=== PATIENT | female | born 1990 | race Caucasian/White ===

== ENCOUNTER 2016-11-27 15:41 | Emergency (ER) | payer OTHER ==
[2016-11-27 15:56] VITALS: O2SAT 97
[2016-11-27] MEDS ORDERED: Tylenol #3 Tablet PO ONE (16:01)
[2016-11-27] MEDS ORDERED: Tylenol #3 Tablet ONE (16:03)
--- NOTE | 2016-11-27 16:03 | ERPHSYRPT ---
- History of Present Illness Time Seen by Provider: 11/27/16 15:55 Source: patient Exam Limitations: clinical condition Patient Subjective Stated Complaint: fell at [facility] today while giving pt a shower. states she caught foot on shower mat. struck left knee on concrete Triage Nursing Assessment: to room per w/c. had ice packs on left knee per de staff. left knee slightly swollen and red from ice. left lower leg and foot warm to touch and good pedal pulse. good cap refill. Physician History: PATIENT STATES WHILE ASSIST LIFTING A RESIDENT IN ALF TRIPPED OVER A RUG IN BATHROOM AND FELL TO FLOOR STRIKING HER LEFT KNEE. PATIENT COMPLAINS OF PAIN WITH SWELLING UNABLE TO BEAR WEIGHT ONTO LEFT LEG. DENIES ASSOCIATED HEAD, NECK AND BACK PAIN. Method of Injury: direct blow, fell Occurred: just prior to arrival Quality: constant Severity of Pain-Max: moderate Severity of Pain-Current: moderate Lower Extremities Pain: knee: left Modifying Factors: Improves With: movement Associated Symptoms: unable to bear weight Allergies/Adverse Reactions: acetaminophen [From Vicodin] Adverse Reaction (Verified 11/27/16 15:49) hydrocodone bitartrate [From Vicodin] Adverse Reaction (Verified 11/27/16 15:49) Home Medications: Metoprolol Succinate 50 mg [Toprol Xl 50 MG] 50 mg PO DAILY 08/08/14 [ History] Omeprazole [Prilosec] 40 mg PO DAILY 08/08/14 [History] Tramadol HCl 50 mg [Ultram 50 mg] 50 mg PO Q6HPRN 08/08/14 [History] Ibuprofen 600 mg PO TIDPRN 11/27/16 [History] Hx Tetanus, Diphtheria Vaccination/Date Given: Yes Hx Influenza Vaccination/Date Given: Yes Hx Pneumococcal Vaccination/Date Given: No - Review of Systems Constitutional: No Symptoms Respiratory: No Symptoms Cardiac: No Symptoms Musculoskeletal: Injury, Joint Pain, Joint Swelling Skin: No Symptoms - Past Medical History Pertinent Past Medical History: Yes Neurological History: Migraines Cardiac History: Hypertension Musculoskeletal History: Other GI Medical History: GERD History: Other Other Medical History: CARPAL TUNNEL RT - Past Surgical History Past Surgical History: Yes Gastrointestinal: Cholecystectomy Musculoskeletal: Orthopedic Surgery Other Surgical History: nose, FEET BILAT - Social History Smoking Status: Former smoker How long have you smoked: 10 Exposure to second hand smoke: No Drug Use: none Patient Lives Alone: No - Female History Hx Last Menstrual Period: three weeks ago - Nursing Vital Signs Nursing Vital Signs: Initial Vital Signs Temperature 97.9 F Temperature Source Oral Pulse Rate 86 Respiratory Rate 16 Blood Pressure [] 130/53 Pain Intensity 4 - Physical Exam General Appearance: alert Eyes, Ears, Nose, Throat Exam: moist mucous membranes Neck Exam: non-tender, supple Cardiovascular/Respiratory Exam: chest non-tender, normal breath sounds, regular rate/rhythm, no respiratory distress Back Exam: normal inspection, No vertebral tenderness Knees Exam: left knee: pain, soft tissue tenderness, swelling (PATELLA MIDLINE, MOBILE, WITH TENDERNESS, FROM WITH PAIN, MINIMAL JOINT LAXITY UPON VARUS/VALGUS STRESS, PEDIS PULSEDS 2+) Neuro/Tendon Exam: normal sensation, normal motor functions Mental Status Exam: alert, oriented x 3, cooperative Skin Exam: normal color, warm, dry SpO2: 97 Oxygen Delivery: Room Air - Radiology Exams Right Knee X-ray Interpretation: Interpreted by me, No Fracture (NO DISLOCATION), No Pneumothorax Ordered Tests: Active Orders 24 hr Category Date Time Status Crutches STAT Care 11/27/16 16:08 Active KNEE (3 VIEWS) Stat Exams 11/27/16 16:01 Completed Medication Summary Discontinued Medications Generic Name Dose Route Start Last Admin Trade Name Que PRN Reason Stop Dose Admin Acetaminophen/Codeine Phosphate 2 tab 11/27/16 16:01 11/27/16 16:04 Tylenol #3 Tablet PO 11/27/16 16:02 2 tab STAT ONE Administration Acetaminophen/Codeine Phosphate Confirm 11/27/16 16:03 Tylenol #3 Tablet Administered 11/27/16 16:04 Dose 2 tab .ROUTE .STK-MED ONE - Progress Progress Note: 11/27/16 16:13 PATIENT GIVEN TYLENOL #3, 2 TABLETS, AND FITTED FOR CRUTCHES Counseled pt/family regarding: diagnosis, need for follow-up, rad results - Departure Time of Disposition: 16:30 Departure Disposition: Home Clinical Impression: CONTUSION/STRAIN LEFT KNEE Condition: Stable Critical Care Time: No Referrals: MARVIN ONEILL, [employer] UP OPERATOR [employer]NAL [Primary Care Provider] - Instructions: Knee Pain Additional Instructions: AMBULATE USING CRUTCHES NONWEIGHT BEARING LEFT LEG FOR 5 DAYS. ELEVATE KNEE AND APPLY ICE OVER KNEE SWELLING EVERY 4 HOURS, 30 MINUTES FOR 48 HOURS. TYLENOL #3 EVERY 4 HOURS FOR PAIN NEEDED. CALL YOUR FAMILY PHYSICIAN TOMORROW FOR APPOINTMENT. Prescriptions: Codeine Phosphate/APAP #3 [Tylenol #3 Tablet] 1 tab PO Q4HPRN PRN #20 tablet PRN Reason: Pain
--- NOTE | 2016-11-27 16:33 | XRAY ---
Indication: Pain following fall. Comparison: None 3 views of the left knee demonstrates posterior fabella. No other bony, articular, or soft tissue abnormalities.
[2016-11-27 16:45] VITALS: BP 130/53; PULSE 86
== END 2016-11-27 16:42 | disposition home or self-care (01) ==
LOC: ED 15:41
DX: S80.02XA Contusion of left knee, initial encounter (principal); S83.92XA Sprain of unspecified site of left knee, initial encounter; W01.0XXA Fall on same level from slipping, tripping and stumbling without subsequent striking against object, initial encounter; Y93.F1 Activity, caregiving, bathing; Y92.121 Bathroom in nursing home as the place of occurrence of the external cause
CPT/HCPCS: 73562; 99283; A9270-GY

== ENCOUNTER 2016-11-27 17:20 | Emergency (ER) | payer OTHER ==
[2016-11-27] MEDS ORDERED: Zofran 4 MG/2 ML VIAL IV ONE (17:53)
[2016-11-27] MEDS ORDERED: GI COCKTAIL 60ML (Belladonn/Phenobarb/Lidoc PO ONE (17:53)
[2016-11-27] MEDS ORDERED: PROTONIX 40 MG IV IV ONE ×2 (17:53→17:59)
[2016-11-27] MEDS ORDERED: Hydromorphone 1 mg/ml Ampule IV ONE (17:53)
[2016-11-27] MEDS ORDERED: Sodium Chloride 0.9% 1000 ML 1,000 ML IV STA (17:53)
[2016-11-27 17:58] LABS: BASOPHIL % 0.2 % (0.0-0.4); Eosinophil % 0.6 % (0.00-5.0); Granulocytes % 58.5 % (36.0-66.0); Mean Cell Volume 87.6 fl (78-100); Mean Corpuscular Hemoglobin 28.2 pg (26-32); Mean Platelet Volume 9.4 fl (6-9.5); Monocytes % 5.7 % (0.0-12.0); Platelet Count 390 K/mm3 (150-450); Red Blood Count 4.68 M/mm3 (4.1-5.4); Red Cell Distribution Width 14.1 % (11.5-14.0); White Blood Count 12.1 K/mm3 (4.0-10.5)
[2016-11-27] MEDS ORDERED: Zofran 4 MG/2 ML VIAL ONE (17:58)
[2016-11-27] MEDS ORDERED: Hydromorphone 1 mg/ml Ampule ONE (17:59)
[2016-11-27] MEDS ORDERED: XYLOCAINE HCl Viscous ONE (17:59)
[2016-11-27] MEDS ORDERED: MAALOX ES 30 ML UNIT DOSE ONE (18:00)
[2016-11-27] MEDS ORDERED: Sodium Chloride 0.9% 1000 ML 1,000 ML ONE (18:00)
[2016-11-27] MEDS ORDERED: Donnatol Liquid ONE (18:00)
--- NOTE | 2016-11-27 18:00 | ERPHSYRPT ---
- History of Present Illness Time Seen by Provider: 11/27/16 17:50 Historian: patient Exam Limitations: clinical condition Patient Subjective Stated Complaint: sudden onset abd pain after leaving er this afternoon. states she tried to eat something and pain got worse. Triage Nursing Assessment: patient crying, moaning, holding abd. states pain started she left er earlier today. abd soft, tender mid abd. states radiates through to her back. Physician History: PATIENT WITH HISTORY OF HYPERTENSION, EVALUATED EARLIER IN EMERGENCY ROOM FOR LEFT KNEE CONTUSION, STRAIN , ADMINISTERED TYLENOL #3- TWO TABLETS WITHOUT EATING TODAY. AFTER DISCHARGE PATIENT DEVELOPED PROGRESSIVE EPIGASTRIC AND PERIUMBILICAL PAIN. DENIES NAUSEA OR EMESIS. Timing/Duration: hour(s) Activities at Onset: none Quality: cramping Abdominal Pain Onset Location: epigastric, periumbilical Pain Radiation: no radiation Severity of Pain-Max: severe Severity of Pain-Current: severe Modifying Factors: Improves With: nothing Associated Symptoms: nausea Previous symptoms: other (GASTROESOPHAGEAL REFLUX) Allergies/Adverse Reactions: acetaminophen [From Vicodin] Adverse Reaction (Verified 11/27/16 17:37) hydrocodone bitartrate [From Vicodin] Adverse Reaction (Verified 11/27/16 17:37) Home Medications: Metoprolol Succinate 50 mg [Toprol Xl 50 MG] 50 mg PO DAILY 08/08/14 [ History] Omeprazole [Prilosec] 40 mg PO DAILY 08/08/14 [History] Tramadol HCl 50 mg [Ultram 50 mg] 50 mg PO Q6HPRN 08/08/14 [History] Ibuprofen 600 mg PO TIDPRN 11/27/16 [History] Hx Tetanus, Diphtheria Vaccination/Date Given: Yes Hx Influenza Vaccination/Date Given: Yes Hx Pneumococcal Vaccination/Date Given: No - Review of Systems Constitutional: No Fever, No Chills Eyes: No Symptoms Ears, Nose, & Throat: No Symptoms Respiratory: No Symptoms, No Cough, No Dyspnea Cardiac: No Chest Pain, No Edema, No Syncope Abdominal/Gastrointestinal: Abdominal Pain, Nausea, No Vomiting, No Diarrhea Genitourinary Symptoms: No Symptoms, No Dysuria Musculoskeletal: No Symptoms, No Back Pain, No Neck Pain Skin: No Symptoms, No Rash Neurological: No Dizziness, No Focal Weakness, No Sensory Changes Psychological: No Symptoms Endocrine: No Symptoms All Other Systems: Reviewed and Negative - Past Medical History Pertinent Past Medical History: Yes Neurological History: Migraines Cardiac History: Hypertension Musculoskeletal History: Other GI Medical History: GERD History: Other Other Medical History: CARPAL TUNNEL RT - Past Surgical History Past Surgical History: Yes Gastrointestinal: Cholecystectomy Musculoskeletal: Orthopedic Surgery Other Surgical History: nose, FEET BILAT - Social History Smoking Status: Former smoker How long have you smoked: 10 Exposure to second hand smoke: No Drug Use: none Patient Lives Alone: No - Female History Hx Last Menstrual Period: three weeks ago - Nursing Vital Signs Nursing Vital Signs: Initial Vital Signs Temperature 97.5 F Temperature Source Oral Pulse Rate 82 Respiratory Rate 16 Blood Pressure [Left Arm] 127/74 Pain Intensity 10 - Physical Exam General Appearance: mild distress, alert Eye Exam: PERRL/EOMI, eyes nml inspection Ears, Nose, Throat Exam: normal ENT inspection, pharynx normal, moist mucous membranes Neck Exam: normal inspection, non-tender, supple, full range of motion Respiratory Exam: normal breath sounds, lungs clear, No respiratory distress Cardiovascular Exam: regular rate/rhythm, normal heart sounds Gastrointestinal/Abdomen Exam: soft, normal bowel sounds, tenderness (THERE IS MODERATE EPIGASTRIC AND PERIUMBILICAL TENDERNESS), No mass Back Exam: normal inspection, normal range of motion, No CVA tenderness, No vertebral tenderness Extremity Exam: normal inspection, normal range of motion, pelvis stable Neurologic Exam: alert, oriented x 3, cooperative, normal mood/affect, nml cerebellar function, sensation nml, No motor deficits Skin Exam: normal color, warm, dry SpO2: 97 Oxygen Delivery: Room Air - CT Exams Abdomen/Pelvis CT Interpretation: Discussed w/radiologist (SPLENOMEGALY, NORMAL APPENDIX, NO FREE AIR OR BOWEL OBSTRUCTION), DJD Ordered Tests: Active Orders 24 hr Category Date Time Status Clean Catch Urine Specimen STAT Care 11/27/16 17:54 Active IV Insertion STAT Care 11/27/16 17:53 Active ABDOMEN AND PELVIS W CONTRAST [CT] Stat Exams 11/27/16 17:53 Taken AMYLASE Stat Lab 11/27/16 17:40 Completed CBC W DIFF Stat Lab 11/27/16 17:40 Completed CMP Stat Lab 11/27/16 17:40 Completed HCG,QUALITATIVE URINE Stat Lab 11/27/16 17:45 Completed LIPASE Stat Lab 11/27/16 17:40 Completed UA W/ MICROSCOPIC Stat Lab 11/27/16 17:45 Completed Medication Summary Generic Name Dose Route Start Last Admin Trade Name Fremarkell PRN Reason Stop Dose Admin Sodium Chloride 1,000 mls @ 500 mls/hr 11/27/16 17:53 11/27/16 18:15 Sodium Chloride 0.9% 1000 Ml IV 11/27/16 19:52 500 mls/hr .Q2H STA Administration Discontinued Medications Generic Name Dose Route Start Last Admin Trade Name Freq PRN Reason Stop Dose Admin Al Hydrox/Mg Hydrox/Simethicone Confirm 11/27/16 18:00 Maalox Es 30 Ml Unit Dose Administered 11/27/16 18:01 Dose 30 ml .ROUTE .STK-MED ONE Belladonna Alkaloids/Phenobarbital 60 ml 11/27/16 17:53 11/27/16 18:35 Gi Cocktail 60ml (Belladonn/Phenobarb/Lidoc* PO 11/27/16 17:54 Not Given STAT ONE Belladonna Alkaloids/Phenobarbital Confirm 11/27/16 18:00 Donnatol Liquid Administered 11/27/16 18:01 Dose 64.8 mg .ROUTE .STK-MED ONE Hydromorphone HCl 1 mg 11/27/16 17:53 11/27/16 18:35 Hydromorphone 1 Mg/Ml Ampule IV 11/27/16 17:54 Not Given STAT ONE Hydromorphone HCl Confirm 11/27/16 17:59 Hydromorphone 1 Mg/Ml Ampule Administered 11/27/16 18:00 Dose 1 mg .ROUTE .STK-MED ONE Sodium Chloride Confirm 11/27/16 18:00 Sodium Chloride 0.9% 1000 Ml Administered 11/27/16 18:01 Dose 1,000 mls @ ud .ROUTE .STK-MED ONE Lidocaine HCl Confirm 11/27/16 17:59 Xylocaine Hcl Viscous * Administered 11/27/16 18:00 Dose 20 ml .ROUTE .STK-MED ONE Ondansetron HCl 4 mg 11/27/16 17:53 11/27/16 18:36 Zofran 4 Mg/2 Ml Vial IV 11/27/16 17:54 Not Given STAT ONE Ondansetron HCl Confirm 11/27/16 17:58 Zofran 4 Mg/2 Ml Vial Administered 11/27/16 17:59 Dose 4 mg .ROUTE .STK-MED ONE Pantoprazole Sodium 40 mg 11/27/16 17:53 11/27/16 18:36 Protonix 40 Mg Iv IV 11/27/16 17:54 Not Given STAT ONE Pantoprazole Sodium Confirm 11/27/16 17:59 Protonix 40 Mg Iv Administered 11/27/16 18:00 Dose 40 mg IV .STK-MED ONE Lab/Rad Data: Laboratory Result Diagrams 11/27/16 17:40 11/27/16 17:40 Laboratory Results 11/27/16 11/27/16 11/27/16 Range/Units 17:45 17:45 17:40 WBC (4.0-10.5) K/mm3 RBC (4.1-5.4) M/mm3 Hgb (12.0-16.0) gm/dl Hct (35-47) % MCV (78-100) fl MCH (26-32) pg MCHC (32-36) g/dl RDW (11.5-14.0) % Plt Count (150-450) K/mm3 MPV (6-9.5) fl Gran % (36.0-66.0) % Lymphocytes % (24.0-44.0) % Monocytes % (0.0-12.0) % Eosinophils % (0.00-5.0) % Basophils % (0.0-0.4) % Basophils # (0-0.4) Sodium 140 (136-145) mEq/L Potassium 3.4 L (3.5-5.1) mEq/L Chloride 105 (98-107) mEq/L Carbon Dioxide 22.2 (21-32) mEq/L Anion Gap 16.0 H (5-15) MEQ/L BUN 12 (9-20) mg/dL Creatinine 1.02 (0.55-1.30) mg/dl Estimated GFR > 60 ML/MIN Glucose 154 H (70-110) MG/DL Calcium 9.2 (8.5-10.1) mg/dL Total Bilirubin 0.40 (0.2-1.0) mg/dL AST 22 (15-37) U/L ALT 25 (12-78) U/L Alkaline Phosphatase 71 (46-116) U/L Serum Total Protein 7.9 (6.4-8.2) gm/dL Albumin 3.4 (3.4-5.0) g/dL Amylase 36 (25-115) U/L Lipase 124 (73-393) U/L Ur Collection Type CCMS Urine Color YELLOW (YELLOW) Urine Appearance CLEAR (CLEAR) Urine pH 5.0 (5-6) Ur Specific [place] 1.020 (1.005-1.025) Urine Protein NEGATIVE (Negative) Urine Ketones NEGATIVE (NEGATIVE) Urine Blood 250 (0-5) Lev/ul Urine Nitrite NEGATIVE (NEGATIVE) Urine Bilirubin NEGATIVE (NEGATIVE) Urine Urobilinogen NORMAL (0-1) mg/dL Ur Leukocyte Esterase NEGATIVE (NEGATIVE) Urine Microscopic RBC 2-5 (0-2) /HPF Urine Microscopic WBC 2-5 (0-5) /HPF Ur Epithelial Cells FEW (FEW) /HPF Urine Bacteria MODERATE (NEGATIVE) /HPF Urine Glucose NEGATIVE (NEGATIVE) mg/dL Urine HCG, Qual NEGATIVE (Negative) Specimen Received 11-27-16 1820 11/27/16 Range/Units 17:40 WBC 12.1 H (4.0-10.5) K/mm3 RBC 4.68 (4.1-5.4) M/mm3 Hgb 13.2 (12.0-16.0) gm/dl Hct 41.0 (35-47) % MCV 87.6 (78-100) fl MCH 28.2 (26-32) pg MCHC 32.2 (32-36) g/dl RDW 14.1 H (11.5-14.0) % Plt Count 390 (150-450) K/mm3 MPV 9.4 (6-9.5) fl Gran % 58.5 (36.0-66.0) % Lymphocytes % 35.0 (24.0-44.0) % Monocytes % 5.7 (0.0-12.0) % Eosinophils % 0.6 (0.00-5.0) % Basophils % 0.2 (0.0-0.4) % Basophils # 0.03 (0-0.4) Sodium (136-145) mEq/L Potassium (3.5-5.1) mEq/L Chloride (98-107) mEq/L Carbon Dioxide (21-32) mEq/L Anion Gap (5-15) MEQ/L BUN (9-20) mg/dL Creatinine (0.55-1.30) mg/dl Estimated GFR ML/MIN Glucose (70-110) MG/DL Calcium (8.5-10.1) mg/dL Total Bilirubin (0.2-1.0) mg/dL AST (15-37) U/L ALT (12-78) U/L Alkaline Phosphatase (46-116) U/L Serum Total Protein (6.4-8.2) gm/dL Albumin (3.4-5.0) g/dL Amylase (25-115) U/L Lipase (73-393) U/L Ur Collection Type Urine Color (YELLOW) Urine Appearance (CLEAR) Urine pH (5-6) Ur Specific [place] (1.005-1.025) Urine Protein (Negative) Urine Ketones (NEGATIVE) Urine Blood (0-5) Lev/ul Urine Nitrite (NEGATIVE) Urine Bilirubin (NEGATIVE) Urine Urobilinogen (0-1) mg/dL Ur Leukocyte Esterase (NEGATIVE) Urine Microscopic RBC (0-2) /HPF Urine Microscopic WBC (0-5) /HPF Ur Epithelial Cells (FEW) /HPF Urine Bacteria (NEGATIVE) /HPF Urine Glucose (NEGATIVE) mg/dL Urine HCG, Qual (Negative) Specimen Received - Progress Progress: improved Progress Note: 11/27/16 19:17 PATIENT REFUSED IV FLUIDS INITALLY, ZOFRAN 4MG, PROTONIX 40 IV Counseled pt/family regarding: lab results, diagnosis, need for follow-up - Departure Time of Disposition: 19:24 Departure Disposition: Home Clinical Impression: ACUTE ABDOMINAL PAIN Condition: Stable Critical Care Time: No Referrals: MARVIN ONEILL DIRECTOR A[employer]IENCE MARKETING [Primary Care Provider] - Instructions: Abdominal Pain-Adult Additional Instructions: CONTINUE ALL CURRENT MEDICATIONS. CONSULT YOUR FAMILY PHYSICIAN IN 1 WEEK FOR FOLLOWUP.
[2016-11-27 18:09] LABS: ALBUMIN 3.4 g/dL (3.4-5.0); ALKALINE PHOSPHATASE 71 U/L (46-116); BLOOD UREA NITROGEN 12 mg/dL (9-20); CHLORIDE 105 mEq/L (98-107); Carbon Dioxide 22.2 mEq/L (21-32); Glucose 154 MG/DL (70-110); LIPASE 124 U/L (73-393); Potassium 3.4 mEq/L (3.5-5.1); SGOT/AST 22 U/L (15-37); SGPT/ALT 25 U/L (12-78); SODIUM 140 mEq/L (136-145); Total Protein 7.9 gm/dL (6.4-8.2)
[2016-11-27 18:27] LABS: Collection Type CCMS; Glucose NEGATIVE (NEGATIVE); Leukocyte Esterase NEGATIVE (NEGATIVE)
[2016-11-27 18:28] LABS: Bacteria MODERATE /HPF (NEGATIVE); Bilirubin NEGATIVE (NEGATIVE); Blood 250 Ery/ul (0-5); COMPLETE URINE MICROSCOPIC? YES; Epithelial Cells FEW /HPF (FEW)
[2016-11-27 19:31] VITALS: BP 130/68; PULSE 80; O2SAT 96
--- NOTE | 2016-11-28 08:30 | XRAY ---
Indication: Mid abdominal and flank pain. Multiple contiguous axial images obtained through the abdomen and pelvis using 80 cc Isovue 370 contrast only. Comparison: None Lung bases are clear with left infrahilar calcified node. Heart is not enlarged. Noncontrasted stomach and bowel loops appear nonobstructed. Normal appendix. Previous cholecystectomy. No free fluid/air. Mild fatty liver. Spleen is enlarged measuring 13.2 cm in greatest axial dimension. Remaining liver, pancreas, spleen, adrenal glands, kidneys, ureters, bladder, uterus, and aorta appear unremarkable. No pathologic retroperitoneal lymphadenopathy. Osseous structures intact. Impression: 1. No acute intra-abdominal/pelvic abnormalities. 2. Incidental mild fatty liver and splenomegaly. CT DI 35.17
== END 2016-11-27 19:50 | disposition home or self-care (01) ==
LOC: ED 17:20
DX: R10.13 Epigastric pain (principal); R10.9 Unspecified abdominal pain; I10 Essential (primary) hypertension; Z79.899 Other long term (current) drug therapy
CPT/HCPCS: 36000; 36415; 74177; 80053; 81000; 82150; 83690; 84703; 85025; 96360; 99284; J1170; J2405; A9270-GY

== ENCOUNTER 2024-05-17 13:03 | Emergency (ER) | payer OTHER ==
[2024-05-17 13:16] VITALS: PULSE 88; TEMP 97.5; O2SAT 98
[2024-05-17] MEDS ORDERED: BENADRYL 50 MG/ML ONE (13:21)
[2024-05-17] MEDS ORDERED: Pepcid 20 MG VIAL IV ONE (13:21)
[2024-05-17] MEDS ORDERED: DECADRON 10MG INJ. ONE (13:21)
[2024-05-17] MEDS: BENADRYL 50 MG/ML IV ONE (13:28)
[2024-05-17] MEDS: DECADRON 10MG INJ. IV ONE (13:28)
[2024-05-17] MEDS: Pepcid 20 MG VIAL IV ONE (13:28)
--- NOTE | 2024-05-17 13:30 | ERPHSYRPT ---
- History of Present Illness Time Seen by Provider: 05/17/24 13:16 Source: patient Exam Limitations: no limitations Patient Subjective Stated Complaint: Rash Triage Nursing Assessment: Patient ambulated back to ED and transferred self to bed. Patient A+O X 3. Patient's skin flushed, warm and dry. Patient complains of rash. Patient states around 10 am she started itching to her henrietta arms. Patient states around noon she noticed a faint red rash to henrietta arms and hands. Patient states 30 min later she had a rash to neck, back, henrietta arms, trunk, chest and henrietta thighs. Timing/Duration: today Severity: mild Associated Symptoms: denies symptoms Allergies/Adverse Reactions: sumatriptan [From Imitrex] Allergy (Verified 05/17/24 13:08) acetaminophen [From Vicodin] Adverse Reaction (Verified 05/17/24 13:08) hydrocodone bitartrate [From Vicodin] Adverse Reaction (Verified 05/17/24 13:08) Home Medications: Metoprolol Succinate 50 mg [Toprol Xl 50 MG] 50 mg PO DAILY 08/08/14 [History] Omeprazole [Prilosec] 40 mg PO DAILY 08/08/14 [History] Tramadol HCl 50 mg [Ultram 50 mg] 50 mg PO Q6HPRN 08/08/14 [History] Ibuprofen 600 mg PO TIDPRN 11/27/16 [History] Hx Tetanus, Diphtheria Vaccination/Date Given: Yes Hx Influenza Vaccination/Date Given: Yes Hx Pneumococcal Vaccination/Date Given: No Immunizations Up to Date: Yes Travel Risk - International Travel Have you traveled outside of the country in past 3 weeks: No - Emerging Infectious Disease Are you exhibiting symptoms associated with any current EIDs: No - Review of Systems Eyes: No Symptoms Ears, Nose, & Throat: No Symptoms Respiratory: No Symptoms Cardiac: No Symptoms Abdominal/Gastrointestinal: No Symptoms Genitourinary Symptoms: No Symptoms Musculoskeletal: No Symptoms Skin: Rash Neurological: No Symptoms - Past Medical History Pertinent Past Medical History: Yes Neurological History: Migraines Cardiac History: Hypertension Musculoskeletal History: Other GI Medical History: GERD History: Other Other Medical History: CARPAL TUNNEL RT - Past Surgical History Past Surgical History: Yes Gastrointestinal: Cholecystectomy Musculoskeletal: Orthopedic Surgery Other Surgical History: nose, FEET BILAT - Female History Hx Last Menstrual Period: last week Hx Now: No - Social History Smoking Status: Former smoker How long have you smoked: 10 Exposure to second hand smoke: No Drug Use: none Patient Lives Alone: No - Social Determinants of Health Will the patient participate in the screening: Yes Do you worry about a steady place to live?: No Do you have any problems with any of the following?: No known problems In the past 12 months,have you had to go without utilities?: No Transportation Issues: No Has anyone in your support network made you feel unsafe?: No Have you or anyone in your house had to go without enough: No - Nursing Vital Signs Nursing Vital Signs: Initial Vital Signs Temperature 97.5 F 05/17/24 13:09 Pulse Rate 88 05/17/24 13:09 Respiratory Rate 20 05/17/24 13:09 Blood Pressure 132/99 05/17/24 13:09 O2 Sat by Pulse Oximetry 97 05/17/24 13:09 Pain Scale Pain Intensity 0 - Physical Exam General Appearance: no apparent distress Eye Exam: PERRL/EOMI Ears, Nose, Throat Exam: normal ENT inspection Respiratory Exam: normal breath sounds Cardiovascular Exam: regular rate/rhythm Gastrointestinal/Abdomen Exam: soft, normal bowel sounds Skin Exam: rash (diffuse urticaria noted ) SpO2: 98 Ordered Tests: Active Orders 24 hr Category Date Time Status IV Insertion STAT Care 05/17/24 13:16 Active Medication Summary Discontinued Medications Generic Name Dose Route Start Last Admin Trade Name Que PRN Reason Stop Dose Admin Dexamethasone Sodium Phosphate 10 mg 05/17/24 13:16 05/17/24 13:28 Dexamethasone Sod Phosphate 10 Mg/Ml IV 05/17/24 13:17 10 mg STAT ONE Administration Dexamethasone Sodium Phosphate Confirm 05/17/24 13:21 Dexamethasone Sod Phosphate 10 Mg/Ml Administered 05/17/24 13:22 Dose 10 mg .ROUTE .STK-MED ONE Diphenhydramine HCl 50 mg 05/17/24 13:16 05/17/24 13:28 Diphenhydramine Hcl 50 Mg/Ml Vial IV 05/17/24 13:17 50 mg STAT ONE Administration Diphenhydramine HCl Confirm 05/17/24 13:21 Diphenhydramine Hcl 50 Mg/Ml Vial Administered 05/17/24 13:22 Dose 50 mg .ROUTE .STK-MED ONE Famotidine 20 mg 05/17/24 13:16 05/17/24 13:28 Famotidine 20 Mg/1 Vial IV 05/17/24 13:17 20 mg STAT ONE Administration Famotidine Confirm 05/17/24 13:21 Famotidine 20 Mg/1 Vial Administered 05/17/24 13:22 Dose 20 mg IV .STK-MED ONE - Progress Progress Note: patient was reevaluated and she feels better and wants to go home - she will be discharged home with benadryl pepcid and prednisone 05/17/24 15:35 Medical Desision Making - Discussion of managment Agreed on:: need for follow-up - Departure Clinical Impression: Allergic reaction, Urticaria Condition: Stable Critical Care Time: No Referrals: ALEX GARCIA DO [Primary Care Provider] - Follow up/PCP as directed Prescriptions: Prednisone 10 mg [Deltasone 10 mg] 20 mg PO BID #14 tablet
[2024-05-17 15:51] VITALS: BP 122/80; RESP 16
== END 2024-05-17 15:58 | disposition home or self-care (01) ==
LOC: ED 13:03
DX: L50.9 Urticaria, unspecified (principal); R21 Rash and other nonspecific skin eruption; T78.40XA Allergy, unspecified, initial encounter
CPT/HCPCS: 96374; 96375; 99284; J1100; J1200

== ENCOUNTER 2024-07-08 18:28 | Emergency (ER) | payer OTHER ==
[2024-07-08 19:10] VITALS: BP 135/85; PULSE 78; RESP 16; TEMP 98.5
[2024-07-08 19:13] VITALS: O2SAT 96
--- NOTE | 2024-07-08 19:13 | ERPHSYRPT ---
- History of Present Illness Time Seen by Provider: 07/08/24 19:08 Source: patient Exam Limitations: no limitations Patient Subjective Stated Complaint: . Triage Nursing Assessment: . 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 She immediately washed. She denies blood going into her eyes, nostril or oral cavity. No other complaints. Postexposure prophylaxis paperwork if failed, offered HIV medication administration which he clearly declined and she does understand the risk and benefits of HIV meds prophylaxis. Blood work is drawn from the patient and how [employer] make sure they will get blood drawn from the source. Patient is not any any distress. She is advised to follow-up with her employee health/infectious control in the morning. Allergies/Adverse Reactions: sumatriptan [From Imitrex] Allergy (Verified 07/08/24 18:47) acetaminophen [From Vicodin] Adverse Reaction (Verified 07/08/24 18:47) hydrocodone bitartrate [From Vicodin] Adverse Reaction (Verified 07/08/24 18:47) Home Medications: Metoprolol Succinate 50 mg [Toprol Xl 50 MG] 50 mg PO DAILY 08/08/14 [History] Omeprazole [Prilosec] 40 mg PO DAILY 08/08/14 [History] Tramadol HCl 50 mg [Ultram 50 mg] 50 mg PO Q6HPRN 08/08/14 [History] Ibuprofen 600 mg PO TIDPRN 11/27/16 [History] Hx Tetanus, Diphtheria Vaccination/Date Given: Yes (2021) Hx Influenza Vaccination/Date Given: Yes Hx Pneumococcal Vaccination/Date Given: No Immunizations Up to Date: Yes Travel Risk - International Travel Have you traveled outside of the country in past 3 weeks: No - Emerging Infectious Disease Are you exhibiting symptoms associated with any current EIDs: No - Review of Systems Constitutional: No Symptoms Eyes: No Symptoms Ears, Nose, & Throat: No Symptoms Respiratory: No Symptoms Cardiac: No Symptoms Musculoskeletal: No Symptoms Skin: No Symptoms - Past Medical History Pertinent Past Medical History: Yes Neurological History: Migraines Cardiac History: Hypertension Musculoskeletal History: Other GI Medical History: GERD History: Other Other Medical History: CARPAL TUNNEL RT - Past Surgical History Past Surgical History: Yes Gastrointestinal: Cholecystectomy Musculoskeletal: Orthopedic Surgery Other Surgical History: nose, FEET BILAT,carpal tunnel - Female History Hx Last Menstrual Period: now Hx Now: No - Social History Smoking Status: Former smoker How long have you smoked: 10 Exposure to second hand smoke: No Drug Use: none Patient Lives Alone: No - Social Determinants of Health Will the patient participate in the screening: Yes Do you worry about a steady place to live?: No Do you have any problems with any of the following?: No known problems In the past 12 months,have you had to go without utilities?: No Transportation Issues: No Has anyone in your support network made you feel unsafe?: No Have you or anyone in your house had to go without enough: No - Nursing Vital Signs Nursing Vital Signs: Pain Scale Pain Intensity 0 - Physical Exam General Appearance: no apparent distress, alert Eye Exam: PERRL/EOMI, eyes nml inspection Ears, Nose, Throat Exam: normal ENT inspection Neck Exam: normal inspection, full range of motion Respiratory Exam: normal breath sounds, lungs clear Cardiovascular Exam: regular rate/rhythm, normal heart sounds Back Exam: normal inspection Extremity Exam: normal inspection, normal range of motion Neurologic Exam: alert, oriented x 3, cooperative, 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 She immediately washed. She denies blood going into her eyes, nostril or oral cavity. No other complaints. Postexposure prophylaxis paperwork if failed, offered HIV medication administr ation which he clearly declined and she does understand the risk and benefits of HIV meds prophylaxis. Blood work is drawn from the patient and how [employer] make sure they will get blood drawn from the source. Patient is not any any distress. She is advised to follow-up with her employee health/infectious control in the morning. Counseled pt/family regarding: lab results, diagnosis, need for follow-up Medical Desision Making - Diagnostic Testing Diagnostic test were ordered, analyzed, and reviewed by me: Yes - Departure Departure Disposition: Home Clinical Impression: Employee exposure to body fluids Condition: Stable Critical Care Time: No Instructions: Blood or body fluid exposure Additional Instructions: Follow-up with employee health/infectious control for reevaluation in the morning and follow the schedule of blood work redraw later.
[2024-07-10 14:25] LABS: HBsAg Screen Negative (Negative); HIV Screen 4th Generation wRfx Non Reactive (Non Reactive); Hep B Surface Ab, Quant 7.9 mIU/mL (Immunity>10); Hep C Virus Ab Non Reactive (Non Reactive)
== END 2024-07-08 19:20 | disposition home or self-care (01) ==
LOC: ED 18:28
DX: Z77.21 Contact with and (suspected) exposure to potentially hazardous body fluids (principal); I10 Essential (primary) hypertension; Z79.899 Other long term (current) drug therapy
CPT/HCPCS: 36415; 86317; 87340; 87389; 99283; G0472; 86803